=== PATIENT | male | born 1995 | race African-American/Black ===

== ENCOUNTER 2018-08-16 07:48 | Emergency (ER) | payer SELFPAY ==
[~2018-08-16] VITALS: Ht 167.6 cm; Wt 74.0 kg
[2018-08-16] MEDS ORDERED: SODIUM CHLORIDE 0.9% 1,000 ML IV ONE (08:22)
[2018-08-16] MEDS ORDERED: LORAZEPAM 2MG/ML CPJ IV ONE (08:30)
[2018-08-16] MEDS ORDERED: KETOROLAC 15MG/ML VIAL IV ONE (08:30)
[2018-08-16 08:37] LABS: *AMPHETAMINES SCREEN URINE NEGATIVE (NEGATIVE); *BARBITURATES SCREEN URINE NEGATIVE (NEGATIVE); *BENZODIAZEPINES SCREEN URINE NEGATIVE (NEGATIVE)
[2018-08-16 08:38] LABS: HEMATOCRIT. 41.9 % (42.0-52.0); HEMOGLOBIN. 14.1 g/dL (14.0-18.0); MEAN CORPUSCULAR VOLUME 92.3 fL (80.0-94.0); MEAN PLATELET VOLUME 8.5 fl (7.4-10.4); PLATELET 254 x1000/uL (130-400); RED BLOOD CELL COUNT 4.54 mill/uL (4.7-6.1); RED CELL DISTRIBUTION WIDTH 13.3 % (11.6-14.6)
[2018-08-16 08:39] LABS: *COCAINE SCREEN URINE NEGATIVE (NEGATIVE); CANNABINOID URINE SCREEN PRESUMTIVE POSITIVE (NEGATIVE); METHADONE URINE SCREEN NEGATIVE (NEGATIVE); OPIATES URINE SCREEN NEGATIVE (NEGATIVE); PHENCYCLIDINE URINE SCREEN NEGATIVE (NEGATIVE)
[2018-08-16 08:47] LABS: CHLORIDE 106 mEq/L (98-107)
[2018-08-16 08:51] LABS: ETHANOL BLOOD < 10 mg/dL
[2018-08-16 09:23] LABS: PLATELET ESTIMATE NORMAL
[2018-08-16 10:05] VITALS: BP 92/44
== END 2018-08-16 10:30 | disposition home or self-care (01) ==
LOC: ER 07:48
DX: G40.89 Other seizures (principal); R51 Headache
CPT/HCPCS: 36415; 80053; 80305; 80320; 85025; 96374; 96375; 99283; J1885; J2060; J7030; G0480